=== PATIENT | female | born 1985 | race Caucasian/White ===

== ENCOUNTER → 2016-04-27 | Outpatient (CLI) | payer OTHER ==
[~2016-04-27] MED LIST: CITRACAL PETITES PO; COLACE-DPS100 MG PO; HAIR, SKIN & N1 EACH PO; IRON325 M1 PO; LORTAB LIQUID D15 ML PO; MELATONIN10 M2 PO; OXY IR DPS5 MG PO; PRENATAL VIT1 TAB PO; PRILOSEC DPS20 MG PO; TYLENOL DPS325 MG PO; ZANTAC DPS150 MG PO; ZOFRAN ODT4 MG PO; [UNRECOGNIZED DRUG - OTHER] PO
--- NOTE | 2016-05-03 09:33 | SS ---
ADMIT: 04/27/2016 RM/LOC: [facility] MR#: [id number] [address] YARELY BRADY [address] [place] [address] Sleep Study SEX: F AGE: 30 : 1985 STUDY DATE: 04/27/2016 Diagnostic Polysomnogram Report PRIMARY CARE: Deepika Tinajero MD CLINICAL HISTORY: A 30-year-old female, body mass index 58.8, 65 inches, 353 pounds. Symptoms of snoring, excessive daytime sleepiness, in the sleep lab for evaluation of obstructive sleep apnea. TECHNICAL DESCRIPTION: Diagnostic polysomnogram performed on night of 04/27/2016, attended by a trained cytology technologist. DIAGNOSTIC POLYSOMNOGRAM FINDINGS: SLEEP: Total time in bed is 438.5 minutes, total sleep time 355 minutes. Sleep efficiency is 81%. 40.1% hours spent in stage II sleep, 24.7% hours spent in stage REM. BREATHING: Few obstructive hypopneas were seen in REM sleep in supine position. During the study, there were 14 obstructive hypopneas noted all in REM sleep in supine position. Apnea-hypopnea index is only 2.4. OXYGEN SATURATION: Mean sleeping oxygen 94%. Lowest oxygen saturation 86% REM sleep. CARDIAC: Average heart rate is 71 beats per minute. MOVEMENTS/POSITION: During the study, the patient slept in the lateral position predominantly, brief time in the supine with a periodic leg movement index of 1.5. IMPRESSION AND PLAN: 1. No significant obstructive sleep apnea. Apnea-hypopnea 2.4. Few hypopneas were seen in REM sleep in supine position with oxygen desaturation. There were 14 obstructive hypopneas noted. No clear indication of CPAP therapy based on this study. 2. Recommendations are weight loss, avoidance of sedatives, and alcohol. Refrain from driving if excessively sleepy. 3. Recommend avoiding sleeping in supine position. Clinical correlation needed. Kevyn Barba MD/ alva JOB #: [id number] CC: Deepika Tinajero MD, Attending Physician Deepika Tinajero MD, Family Physician ADMIT: 04/27/2016 RM/LOC: [facility] MR#: [id number] [id number] [address] [address]Y [address] [place] [address] Sleep Study SEX: F AGE: 30 : 1985 Deepika Tinajero MD
== END | disposition home or self-care (01) ==
LOC: RAD.S 04-13 13:10
DX: R09.02 Hypoxemia (principal)

== ENCOUNTER 2016-07-07 08:44 | Observation (INO) | payer OTHER ==
[~2016-07-07] VITALS: Ht 166.4 cm; Wt 144.0 kg
[~2016-07-07 08:44] MED LIST changes: -CITRACAL PETITES PO; -COLACE-DPS100 MG PO; -HAIR, SKIN & N1 EACH PO; -IRON325 M1 PO; -OXY IR DPS5 MG PO; -[UNRECOGNIZED DRUG - OTHER] PO
[2016-07-10] MEDS ORDERED: CITRACAL PETITES PO (15:20)
[2016-07-10] MEDS ORDERED: [UNRECOGNIZED DRUG - OTHER] PO (15:20)
[2016-07-10] MEDS ORDERED: COLACE-DPS100 MG PO (15:21)
[2016-07-10] MEDS ORDERED: HAIR, SKIN & N1 EACH PO (15:21)
[2016-07-10] MEDS ORDERED: IRON325 M1 PO (15:21)
[2016-07-10] MEDS ORDERED: OXY IR DPS5 MG PO (15:21)
--- NOTE | 2016-07-12 15:34 | ER ---
ADMIT: 07/07/2016 RM/LOC: 8 [facility] MR#: [id number] [id number] [address] YARELY BRADY [address] [place] [address] Emergency Room Report SEX: F AGE: 30 : 1985 DATE: 07/07/2016 HISTORY OF PRESENT ILLNESS: The patient is a 30-year-old female, presents to emergency room with abdominal pain for about a day although she said it got really bad today, it has been going on for 4-5 days. She said she had a fever yesterday, 100.6, with some nausea. She was dry heaving. REVIEW OF SYSTEMS: Positive for ear infection, which she has been treated for with Amoxil. PAST MEDICAL HISTORY: Pretty benign. She had cholecystectomy, gastric sleeve, and a recent ear infection. She has also has GERD. MEDICATIONS: She takes Prilosec for her GERD, but it is p.r.n. PHYSICAL EXAMINATION: VITAL SIGNS: Blood pressure 146/94 with a heart rate of 55, respirations 16, temp is 97.3, O2 sats 100%. GENERAL: Moderately anxious. HEENT: Normal inspection. NECK: Supple. RESPIRATIONS: No distress. CVS: Regular in rate and rhythm. ABDOMEN: Right upper quadrant abdominal discomfort and tenderness. No guarding. No rebound. No psoas or McBurney's point tenderness. BACK: Normal inspection. No CVA tenderness. SKIN: Good color. EXTREMITIES: Nontender. NEUROLOGIC: Oriented x4. LABORATORY DATA: White count 4.5, hemoglobin 11.9. Calcium 8.4, potassium 3.5. Alkaline phosphatase 397, AST 716, ALT 813. Amylase 10. Urine ADMIT: 07/07/2016 RM/LOC: 8 [facility] MR#: [id number] [address] YARELY BRADY [address] [place] [address] Emergency Room Report SEX: F AGE: 30 : 1985 negative. The UA shows ketones 2+. She got a CT of the abdomen that showed that the gastric sleeve is okay. Ultrasound recommended by radiologist did show fatty liver and spleen enlarged. She has bilirubin Icto positive. CLINICAL IMPRESSION: 1. Transaminase elevation. 2. Abdominal pain, right upper quadrant. Dr. Tinajero was contacted for admission. She will be observation, n.p.o., receiving fluids, and pain control. She did receive some Zofran and some fentanyl that dulled the pain and she is resting comfortably now. She received 1 L of normal saline. The patient is awaiting placement. ABA Vazquez / Myron Espinoza MD / alva JOB #: [id number] CC: Deepika Tinajero MD, Attending Physician Deepika Tinajero MD, Family Physician
--- NOTE | 2016-07-13 09:09 | HP ---
ADMIT: 07/07/2016 RM/LOC: 618 [facility] MR#: [id number] [address] YARELY BRADY [address] [place] [address] History and Physical SEX: F AGE: 30 : 1985 DATE OF SERVICE: CHIEF COMPLAINT: Right upper quadrant abdominal pain. HISTORY OF PRESENT ILLNESS: The patient is a 30-year-old female, who presented to the emergency room today with right upper quadrant abdominal pain and nausea. 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 She tried taking Prilosec twice through the day and did not really seem to make things any better. The pain would come and go through the day though, and so she did not come in. Finally today though, it came on and was not improving, so her brought her to the emergency room. While there, her liver functions were noted to be quite elevated. The patient has had a recent cholecystectomy and they did an ultrasound, but it did not show any ductal dilatation. She does have fatty liver. She also has morbid obesity and had a recent lap sleeve. She was having some right upper quadrant pain prior to her cholecystectomy and did have known gallstones. She says the pain is in a similar location but feels different. It is definitely in the right upper quadrant specifically but radiates through to the back. No urinary symptoms with it. She gets nausea with the pain. Some dry heaves at home but no other significant vomiting. Her stools have been normal and she denies any constipation or diarrhea. She and her do state that last week, all the family was ill with flu-like symptoms though they had a negative influenza swab. They had fevers, chills, muscle aches, congestion, and nausea. Everyone else though was feeling better. PAST MEDICAL HISTORY: Again, the patient had the laparoscopic sleeve gastrectomy and cholecystectomy in February. That was complicated by postop bleeding that required another surgery 2 days after her initial surgery. She has had no complications since then. She also had a vaginal delivery in March 2015. She is a 3, para 2-0-1-2. Has suffered from morbid obesity. Also, has had a sleep study done that was normal. No other chronic medical issues. MEDICATIONS: She is takin. Ferrous sulfate 325 mg daily. 2. Citracal petites with vitamin D3 one daily. 4. Omeprazole 20 mg daily as needed. ALLERGIES: NO KNOWN DRUG ALLERGIES. SOCIAL HISTORY: The patient is with two children. She denies any tobacco, alcohol, or drug use. FAMILY HISTORY: Significant for hypertension, lymphedema. REVIEW OF SYSTEMS: CONSTITUTIONAL: Had a fever yesterday of 100.6. None today. HEENT: No current headaches, congestion, or sore throat. ADMIT: 07/07/2016 RM/LOC: 618 [facility] MR#: [id number] [address] [place] [phone] [address] BRADY [address] [place] [id number] History and Physical SEX: F AGE: 30 : 1985 CARDIAC: No chest pain or palpitations. RESPIRATORY: No shortness of breath or cough. GASTROINTESTINAL: As above. GENITOURINARY: Has been urinating normally. No dysuria, frequency, or hematuria. MUSCULOSKELETAL: No joint aches or pains or myalgias. SKIN: No rashes. PHYSICAL EXAMINATION: VITAL SIGNS: Temp is 98.0, blood pressure 125/72, pulse 58, sats are 100% on room air. GENERAL: The patient is alert and oriented x3, and in no acute distress. HEART: Regular in rate and rhythm without murmurs. LUNGS: Sound clear to auscultation bilaterally. ABDOMEN: Soft, nondistended, obese, but is tender mildly in the right upper quadrant now. She has received fentanyl and Dilaudid for pain. No rebound or guarding is noted. She has positive bowel sounds. EXTREMITIES: Has trace edema bilaterally. She has 2+ dorsalis pedis pulses. SKIN: Without rashes. NEURO: No focal neurologic deficits are noted. LABORATORY DATA: Her creatinine is normal at 0.8, glucose 98. Bilirubin was 2.2, AST 716, ALT 813, alkaline phosphatase 397. Amylase and lipase are both normal. Her white count is 4.5, hemoglobin 11.9. UA showed 2+ ketones and was positive for bilirubin. Ultrasound again showed fatty liver, but no ductal dilatation or other complications around the site of her prior surgery. CT, likewise, just showed postop changes, but no other acute abnormalities. ASSESSMENT: 1. Right upper quadrant abdominal pain. 2. Elevated liver enzymes and bilirubin. ADMIT: 07/07/2016 RM/LOC: 618 [facility] MR#: [id number] [address] [place] [id number] YARELY BRADY [address] [place] [id number] History and Physical SEX: F AGE: 30 : 1985 3. Fatty liver by ultrasound. 4. Morbid obesity. 5. Recent viral infection. 6. Status post laparoscopic sleeve gastrectomy. 7. Status post cholecystectomy. PLAN: We will, for now, just work on bowel rest and IV hydration and pain control. We will recheck tests in the morning. I will check an EBV and CMV. There is no evidence of excess Tylenol usage or any other toxins. I think unlikely without ductal dilatation that she has any ductal obstruction left over from a stone from her surgery 4 months ago, but if things are not improving might get a surgery consult as well. Deepika Tinajero MD/ alva JOB #: [id number] CC: Deepika Tinajero, Attending Physician Deepika Tinajero, Family Physician
== END 2016-07-09 11:35 | disposition home or self-care (01) ==
LOC: ER 08:44 → 6PED 13:05
PROVIDERS: ADMIT Family Medicine
DX: B19.9 Unspecified viral hepatitis without hepatic coma (principal); E66.01 Morbid (severe) obesity due to excess calories; Z90.49 Acquired absence of other specified parts of digestive tract; Z98.84 Bariatric surgery status; Z79.899 Other long term (current) drug therapy